=== PATIENT | male | born 1955 | race Caucasian/White ===

== ENCOUNTER 2016-11-13 08:18 | Inpatient (IN) | payer BC ==
[2016-11-13] MEDS ORDERED: NORMAL SALINE 10 ML SYRINGE FLUSH IVP PRN ×2 (08:39→11:11)
[2016-11-13] MEDS ORDERED: Sodium Chloride 0.9% 1,000 ML PRIMARY IV ONE (08:39)
[2016-11-13] MEDS ORDERED: Pantoprazole Inj 40 MG in Normal Saline Flush 10 ML IVP ONE (08:39)
[2016-11-13 08:51] LABS: BASOPHILS # (AUTO) 0.02 10*3/UL; BASOPHILS % (AUTO) 0.2 % (0-1); EOSINOPHILS # (AUTO) 0.08 10*3/UL; EOSINOPHILS % (AUTO) 0.9 % (0-8); HEMATOCRIT 42.3 % (42.0-52.0); LYMPHOCYTES # (AUTO) 0.95 10*3/uL; MEAN CORPUSCULAR HEMOGLOBIN 30.7 PG (27-31); MEAN CORPUSCULAR HGB CONC 35.5 g/dL (33-37); MEAN CORPUSCULAR VOLUME 86.5 FL (80-90); MEAN PLATELET VOLUME 10.5 FL (7.4-12.2); MONOCYTES # (AUTO) 0.75 10*3/UL (0.3-0.8); MONOCYTES % (AUTO) 8.1 % (5-15); NEUTROPHILS % (AUTO) 80.3 % (50-80); RED BLOOD COUNT 4.89 10^6/uL (4.20-6.10)
[2016-11-13 08:53] LABS: PLATELET MORPHOLOGY COMMENT NORMAL MORPHOLOGY (NORM); RBC MORPHOLOGY COMMENT NORMAL MORPHOLOGY (NORM); WBC MORPHOLOGY COMMENT NORMAL MORPHOLOGY (NORM)
--- NOTE | 2016-11-13 08:55 | PDOC ---
Abdomen/Flank HPI - General Chief Complaint: Abdomen Pain Stated Complaint: STOMACH PAIN Date Seen by Provider: 11/13/16 Time Seen by Provider: 08:35 Source: POSITIVE: Patient Exam Limitations: POSITIVE: No limitations Nurse's Notes Reviewed & Considered: Yes - History of Present Illness Initial Comments: The patient is a 61-year-old male who presents to the emergency department with right upper quadrant abdominal pain. He states that he had onset of right upper quadrant pain at approximately 10:00 yesterday morning shortly after eating a fairly large breakfast. He states that since onset of pain his pain has been constant. Occasionally he gets some pain that radiates through to his back as well. He tried eating a little bit last night and he did not notice any significant worsening in pain. He rates his pain at a greater than 5 out of 10. He denies any associated nausea or vomiting or change in bowel movements. He states he did have a small bowel movement last night with no relief in pain. He denies fevers or chills. He has not had any chest pain or shortness of breath. He has had previous appendectomy at the age of 19 and denies any other abdominal surgery. - Patient Home Medications Home Medications: Home Medications Glyburide 5 mg PO DAILY 11/13/16 Levothyroxine Sodium [Synthroid] 150 mcg PO DAILY 11/13/16 Lisinopril 40 mg PO DAILY 11/13/16 Pravastatin Sodium 40 mg PO DAILY 11/13/16 metFORMIN ER Tab [Glucophage XR Tab] 500 mg PO DAILY 11/13/16 - Patient Allergies Allergies/Adverse Reactions: Allergies Allergy/AdvReac Type Severity Reaction Status Date / Time No Known Allergies Allergy Unverified 11/13/16 08:26 Past Medical History - heen HEENT History: Denies History Cardiovascular History: Other (please comment) Additional Cardiovasular History: high calcium index test Respiratory History: Denies History Gastrointestinal History: Denies History Genitourinary History: Denies History Endocrine History: Denies History Musculoskeletal History: Denies History Prosthesis or Implant: No Neurological History: Denies History Blood Disorders: Denies History Psychiatric History: Denies History History of Sexually Transmitted Diseases: No Male Reproductive History: Denies History Female Reproductive History: Denies History Obstetrical History: Denies History Cancer History: Denies History In Past Year Been Physically Harmed or Verbally Threatened: No History of MDRO: No History of Other Communicable Diseases: No Tobacco Use: Never Smoker Alcohol Use: Occasionally Substance Use Type: None Previous Surgical History: No Past Medical History Reviewed: Reviewed - No Changes ROS - Limitations ROS Limitations: No Limitations Constitution: DENIES: Chills, Fever Cardiovascular: REPORTS: Other (Had a recent cardiac workup including cardiac catheter and was told that his coronary arteries have no blockage). DENIES: Chest Pain Respiratory: REPORTS: Denies Resp Symptoms. DENIES: Hurts To Breathe, Shortness Of Breath Gastrointestinal: REPORTS: Abdominal Pain. DENIES: Nausea, Vomitting, Diarrhea , Black Stools, Bloody Stools Musculoskeletal: REPORTS: Denies MS Symptoms Genitourinary: REPORTS: Denies Symptoms. DENIES: Flank Pain Eyes: REPORTS: Denies Symptoms ENT: REPORTS: Denies Symptoms Skin: DENIES: Rash Abdominal/Flank Pain PE - General Appearance General Appearance: POSITIVE: Alert, Cooperative, No Acute Distress - HEENT HEENT: POSITIVE: Head Inspection Nml - Neck Neck: POSITIVE: Normal Inspection - Respiratory Respiratory: POSITIVE: No Respiratory Distress, Breath Sounds Normal - Cardiovascular Cardiovascular: POSITIVE: Regular Rate and Rhythm, Heart Sounds Normal - Abdomen Abdomen: Soft: (All Quadrants), Normal Bowel Sounds: (All Quadrants), No Guarding: (All Quadrants), No Rebound: (All Quadrants), No [place] Mass: (All Quadrants), No Distention: (All Quadrants) Additional Abdominal Details: He does have tenderness in the right mid and right upper quadrant without any guarding or rebound tenderness, Lloyd's sign is mildly positive - Back Back: NEGATIVE: CVA Tenderness (R), CVA Tenderness (L) - Skin Skin: POSITIVE: Intact, No Rash - Extremities Extremity: Normal ROM: (All Extremities), Normal Inspection: (All Extremities) - Neurological Neurological: POSITIVE: Oriented X3, Motor Normal, Sensation Normal Abdomen Progress - Patient's Progress MDM / ED Course: Initial evaluation was completed in an IV was established. Blood work including CBC, CMP, amylase, lipase and CRP was ordered. In addition a CT scan with IV contrast of his abdomen and pelvis was ordered. Patient care was transferred to Dr. Giles at 0900. Patient Care Time - Estimated PCT Patient Care Time (In Minutes): 15 Vital Signs - Recent Vital Signs Vital Signs: Vital Signs (Last 8 hours) Temp Pulse Resp BP Pulse Ox 11/13/16 08:32 96.7 F 87 18 155/81 95 - VS Reviewed Vital Signs Reviewed: Yes Discharge Clinical Impression: Abdominal pain Condition: Stable
[2016-11-13 09:00] LABS: URINE SAMPLE TYPE CLEAN CATCH URINE
[2016-11-13 09:01] LABS: BILIRUBIN,URINE NEGATIVE (NEG); CLARITY,URINE CLEAR (CLEAR); COLOR,URINE YELLOW; GLUCOSE, URINE (UA) 100 mg/dL (NEG); NITRATE,URINE NEGATIVE (NEG); OCCULT BLOOD,URINE NEGATIVE (NEG); PROTEIN,URINE NEGATIVE (NEG); UROBILINOGEN,URINE 0.2 EU/dL (0.2)
[2016-11-13] MEDS ORDERED: KETOROLAC 30 MG/1 ML VIAL IVP ONE (09:09)
[2016-11-13 09:14] LABS: BLOOD UREA NITROGEN 13 mg/dL (7-22); BUN/CREATININE RATIO 18.57 (6-20); C-REACTIVE PROTEIN 4.5 mg/dL (0.0-0.9); CALCIUM 9.1 mg/dL (8.7-10.7); EST GLOMERULAR FILTRATION > 60 (>60 ml/min/1.73m(2)); LIPASE 448 IU/L (23-300); SERUM ALBUMIN 4.3 g/dL
--- NOTE | 2016-11-13 09:14 | PDOC ---
Transfer of Care - Care Accepted Time Care Transferred: 09:10 Report from Transferring Physician Received: Yes MDM / ED Course: Patient was transferred to my care while awaiting laboratory findings and CT examination of his abdomen. He has right upper quadrant pain that is constant and unremitting that he rates as a 5/10. He has a history of hypertriglyceridemia and a similar episode in the past during which she had a period of jaundice, elevated amylase, and pain that resolved. He is unsure of what the diagnosis was. Presently he denies any headache, shortness of breath, chest pain, nausea vomiting or diarrhea, no fever chills or sweats. Home Medications: Home Medications Glyburide 5 mg PO DAILY 11/13/16 Levothyroxine Sodium [Synthroid] 150 mcg PO DAILY 11/13/16 Lisinopril 40 mg PO DAILY 11/13/16 Pravastatin Sodium 40 mg PO DAILY 11/13/16 metFORMIN ER Tab [Glucophage XR Tab] 500 mg PO DAILY 11/13/16 Allergies/Adverse Reactions: Allergies No Known Allergies Allergy (Unverified 11/13/16 08:26) Vital Signs Reviewed: Yes Nurse's Notes Reviewed & Considered: Yes - Pending Patient Care Items Pending Patient Care Items: POSITIVE: Labs, Pain Control, CT / MRI Results - Expected Patient Outcome Tentative Impression of Patient: Right upper quadrant pain with differential diagnostic considerations including #1 gallbladder dysfunction, #2 hypertriglyceridemia and early pancreatitis, #3 liver dysfunction. Expected Disposition: POSITIVE: Home Expected Disposition of Patient: Patient being admitted with pancreatitis. - Re-Evaluation of Patient Re-Examine Time:: 11:07 Disposition of Patient: POSITIVE: Admitted Counseled: POSITIVE: Patient, RE: Lab Results, RE: Radiology Results, RE: DX Pending Test Results Documented: Yes Clinical Impression Documented: Yes (pancreatitis) - Results Reviewed Lab Results Reviewed by Me: Yes Lab Results: Laboratory Results 11/13/16 11/13/16 Range/Units 08:25 08:49 WBC 9.22 (4.8-10.8) 10^3/uL RBC 4.89 (4.20-6.10) 10^6/uL Hgb 15.0 (14.0-18.0) g/dL Hct 42.3 (42.0-52.0) % MCV 86.5 (80-90) FL MCH 30.7 (27-31) PG MCHC 35.5 (33-37) g/dL RDW Std Deviation 39.5 (39-50) fL RDW Coeff of Agustín 12.7 (11.5-14.5) % Plt Count 140 (140-350) 10*3/uL MPV 10.5 (7.4-12.2) FL Immature Gran % (Auto) 0.2 (0-5) % Neut % (Auto) 80.3 H (50-80) % Lymph % (Auto) 10.3 (10-50) % [place] % (Auto) 8.1 (5-15) % Eos % (Auto) 0.9 (0-8) % Baso % (Auto) 0.2 (0-1) % Immature Gran # (Auto) 0.02 10*3/UL Neut # (Auto) 7.40 10*3/UL Lymph # (Auto) 0.95 10*3/uL [place] # (Auto) 0.75 (0.3-0.8) 10*3/UL Eos # (Auto) 0.08 10*3/UL Baso # (Auto) 0.02 10*3/UL WBC Morphology Comment Normal morphology (NORM) Plt Morphology Comment Normal morphology (NORM) RBC Morph Comment Normal morphology (NORM) Sodium 136 (135-145) meq/L Potassium 4.0 (3.8-5.2) meq/L Chloride 102 (98-112) meq/L Carbon Dioxide 23 (23-33) meq/L Anion Gap 11 (5-20) BUN 13 (7-22) mg/dL Creatinine 0.7 (0.50-1.20) mg/dL Estimated GFR > 60 (>60 ml/min/1.73m(2)) BUN/Creatinine Ratio 18.57 (6-20) Glucose 223 H (78-110) mg/dL Mean Blood Glucose 173.740 mg/dL Hemoglobin A1c 7.80 H (4.2-6.0) % Calculated Osmolality 288.0 (267-292) mOsm/kg Calcium 9.1 (8.7-10.7) mg/dL Total Bilirubin 1.0 (0.3-1.2) mg/dL AST 21 (21-57) IU/L ALT 35 IU/L Alkaline Phosphatase 74 (38-126) IU/L C-Reactive Protein 4.5 H (0.0-0.9) mg/dL Total Protein 7.3 (6.1-8.0) g/dL Albumin 4.3 g/dL Globulin 3.0 (2.50-4.10) g/dL Albumin/Globulin Ratio 1.40 mg/g Amylase 81 (30-110) U/L Lipase 448 H (23-300) IU/L Ur Collection Type Clean catch urine Urine Color Yellow Urine Clarity Clear (CLEAR) Urine pH 6.0 (5.0-8.5) Ur Specific [place] 1.015 (1.005-1.030) Urine Protein Negative (NEG) mg/dl Urine Glucose (UA) 100 (NEG) mg/dL Urine Ketones Negative (NEG) Urine Occult Blood Negative (NEG) Urine Nitrate Negative (NEG) Urine Bilirubin Negative (NEG) Urine Urobilinogen 0.2 (0.2) EU/dL Ur Leukocyte Esterase Negative (NEG) Ur Culture Indicated? Culture not set - Consult Consult (If Yes, Name of Consulting MD & Time Called): Yes (Dr. Hutton) Recommendations:: Admission for pancreatitis, hydration, pain medication, nothing by mouth. Patient Care Time - Estimated PCT Patient Care Time (In Minutes): 20 Vital Signs - Recent Vital Signs Vital Signs: Vital Signs (Last 8 hours) Temp Pulse Resp BP Pulse Ox 11/13/16 08:32 96.7 F 87 18 155/81 95 - VS Reviewed Vital Signs Reviewed: Yes Discharge Clinical Impression: Abdominal pain, Pancreatitis Discharge Disposition: Admit to Inpatient Condition: Stable Patient Instructions Given at Discharge: Pancreatitis (ED) Follow Up With: DANIEL TSANG [Primary Care Provider] - Date Decision to Admit to Inpatient: 11/13/16 Time Decision to Admit to Inpatient: 11:10
--- NOTE | 2016-11-13 10:42 | DI ---
HISTORY: Right upper quadrant abdominal pain for 1day. History of appendectomy and lumbar laminecto my. COMPARISON: None available. TECHNIQUE: Multiple helically acquired CT images were obtained through the abdomen and pelvis withou t contrast. FINDINGS: Examination demonstrates some focal inflammatory fat surrounding the head of pancreas and second portion the duodenum. This appears to be more centered around the pancreatic head. The liver, gallbladder, spleen and adrenals are normal. There is a large simple cyst within the righ t kidney measuring 4.8 cm in long axis. There is a large renal parenchymal stone within the interpol ar right kidney without hydronephrosis. The ureters demonstrate normal course and caliber. The urinary bladder is unremarkable. A few colonic diverticula are noted without CT evidence of acut e diverticulitis. Post surgical changes are seen consistent with laminectomies of the lower lumbar spine. IMPRESSION: 1. Inflammatory changes surrounding the pancreatic head most consistent with pancreatitis. Correlate with labs. This could also be secondary inflammation of the pancreas due to a duodenitis.
[2016-11-13] MEDS ORDERED: LIDOCAINE W/ SODIUM BICARB 0.5 ML SYR SUBD PRN (11:11)
[2016-11-13] MEDS ORDERED: ONDANSETRON 4 MG/2 ML VIAL IVP PRN (11:11)
[2016-11-13] MEDS: HYDROmorphone 2 MG/1 ML IVP PRN ×3 (12:00→20:11)
[2016-11-13] MEDS: Sodium Chloride 0.9% 1,000 ML PRIMARY IV SCH ×2 (12:50→20:13)
--- NOTE | 2016-11-13 14:31 | PDOC ---
History and Physical - History of Present Illness Date and Time of Service: 11/13/2016, 0360 Chief Complaint: Abdominal pain History of Present Illness: This very pleasant 7-year-old male who has diabetes mellitus type II, hypothyroidism, hypercholesterolemia, and hypertension, who came down in the [place] area yesterday (actually near [facility]), and he developed abdominal pain sometime yesterday around 10:00 a.m. or so. He states that it was quite severe, centered in the middle of the abdomen and right side of the abdomen and radiated to the back bilaterally. He had a similar pain over 20 years ago or so in which he was jaundice, and he states that they thought he may have passed the stone through the common bile duct. He did not have a cholecystectomy at that time. Workup from that hospital stay is not known and that was in [place], [place]. He denies any fever with these symptoms. He states he was recently told by die welder in [place] that his cholesterol was high enough that it could put him at risk for pancreatitis and he has been on a statin since that time. He also takes coenzyme Q10. He denies drinking. No nausea or vomiting. He tried position changes and that did not help his pain get better. Dilaudid seems to help his pain get better. Past Medical History Medical History: 1. Hypertension. 2. Diabetes mellitus type II, no known complications. 3. Hypercholesterolemia with hypertriglyceridemia. 4. Hypothyroidism Surgical History: 1. Remote appendectomy Pertinent Family History: Significant for heart disease. Past Social History: Does not smoke or drink. for about 35 years, has 2 daughters described as healthy. 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 Tobacco Use: Never Smoker Substance Use Type: None Alcohol Use: None Medication / Allergies Home Medications: Home Medications Medication Instructions Recorded Confirmed Type Glyburide 5 mg PO DAILY 11/13/16 11/13/16 History Levothyroxine Sodium [Synthroid] 150 mcg PO DAILY 11/13/16 11/13/16 History Lisinopril 40 mg PO DAILY 11/13/16 11/13/16 History Pravastatin Sodium 40 mg PO DAILY 11/13/16 11/13/16 History metFORMIN ER Tab [Glucophage XR 500 mg PO DAILY 11/13/16 11/13/16 History Tab] Allergies/Adverse Reactions: Allergies Allergy/AdvReac Type Severity Reaction Status Date / Time No Known Allergies Allergy Verified 11/13/16 11:38 Review of Systems - Review of Systems All Systems: Reviewed & No Additional Complaints Except as Stated (I did a 12 point review systems and it was negative other than that discussed below or as in the history of present illness.) - Cardiovascular Cardiovascular: REPORTS: Other (Had recent workup with die welder regarding potential for coronary artery disease and his studies were reportedly negative.) - Gastrointestinal Gastrointestinal / Abdominal: REPORTS: See HPI - Musculoskeletal Musculoskeletal: REPORTS: Joint Pain - Shoulders (Bilateral shoulder pain that the patient tries position changes for at nighttime. He gets poor sleep because of the shoulder pain.) Exam - Vitals Vital Signs: Vital Signs Temperature 97.8 F Temperature Source Temporal Artery Scan Pulse Rate [Pulse Oximeter] 84 Respiratory Rate 19 Blood Pressure [Left Arm] 153/86 Pulse Ox 95 Oxygen Delivery Method Room Air Height 5 ft 9.5 in Weight 246 lb - General General Appearance: POSITIVE: No Acute Distress, Cooperative - Head Head Exam: POSITIVE: Normal Inspection, Normocephalic, Atraumatic - Eye Eye Exam: POSITIVE: No Scleral Icterus - ENT ENT Exam: POSITIVE: Mucous Membranes Moist - Neck Neck Exam: POSITIVE: Normal Inspection, No Tenderness, No Thyromegaly - Respiratory Respiratory Exam: POSITIVE: Clear to Auscultation - Bilaterally, Breathing Non Labored, Normal to Percussion and Palpation - Cardiovascular Cardiovascular Exam: POSITIVE: RRR, No Murmur, No Clicks, No Gallops, No Rubs, No JVD - GI/Abdominal GI/Abdominal Exam: POSITIVE: Normal Bowel Sounds, Non Tender, Non Distended, Soft - Rectal Rectal Exam: POSITIVE: Deferred - External Exam: POSITIVE: Deferred Exam: POSITIVE: Deferred - Extremities Extremities Exam: POSITIVE: No Clubbing Present, No Edema Present, No Cyanosis Present - Back Back Exam: POSITIVE: Normal Inspection, No CVA Tenderness - Neurological Neurological Exam: POSITIVE: Alert, Oriented x 3, No Facial Droop, Speech Intact / Clear, Moves All Extremities Equally - Psychiatric Psychiatric Exam: POSITIVE: Normal Affect, Normal Mood - Integumentary Integumentary Exam: POSITIVE: Normal Color, Warm, Dry, Intact - Central Line Examination Central Line Present on Admission: No Results - Labs CBC and BMP: 11/13/16 08:25 11/13/16 08:25 Labs - Last 24 Hours: Laboratory Results 11/13/16 11/13/16 Range/Units 08:25 08:49 WBC 9.22 (4.8-10.8) 10^3/uL RBC 4.89 (4.20-6.10) 10^6/uL Hgb 15.0 (14.0-18.0) g/dL Hct 42.3 (42.0-52.0) % MCV 86.5 (80-90) FL MCH 30.7 (27-31) PG MCHC 35.5 (33-37) g/dL RDW Std Deviation 39.5 (39-50) fL RDW Coeff of Agustín 12.7 (11.5-14.5) % Plt Count 140 (140-350) 10*3/uL MPV 10.5 (7.4-12.2) FL Immature Gran % (Auto) 0.2 (0-5) % Neut % (Auto) 80.3 H (50-80) % Lymph % (Auto) 10.3 (10-50) % [place] % (Auto) 8.1 (5-15) % Eos % (Auto) 0.9 (0-8) % Baso % (Auto) 0.2 (0-1) % Immature Gran # (Auto) 0.02 10*3/UL Neut # (Auto) 7.40 10*3/UL Lymph # (Auto) 0.95 10*3/uL [place] # (Auto) 0.75 (0.3-0.8) 10*3/UL Eos # (Auto) 0.08 10*3/UL Baso # (Auto) 0.02 10*3/UL WBC Morphology Comment Normal morphology (NORM) Plt Morphology Comment Normal morphology (NORM) RBC Morph Comment Normal morphology (NORM) Sodium 136 (135-145) meq/L Potassium 4.0 (3.8-5.2) meq/L Chloride 102 (98-112) meq/L Carbon Dioxide 23 (23-33) meq/L Anion Gap 11 (5-20) BUN 13 (7-22) mg/dL Creatinine 0.7 (0.50-1.20) mg/dL Estimated GFR > 60 (>60 ml/min/1.73m(2)) BUN/Creatinine Ratio 18.57 (6-20) Glucose 223 H (78-110) mg/dL Mean Blood Glucose 173.740 mg/dL Hemoglobin A1c 7.80 H (4.2-6.0) % Calculated Osmolality 288.0 (267-292) mOsm/kg Calcium 9.1 (8.7-10.7) mg/dL Total Bilirubin 1.0 (0.3-1.2) mg/dL AST 21 (21-57) IU/L ALT 35 IU/L Alkaline Phosphatase 74 (38-126) IU/L C-Reactive Protein 4.5 H (0.0-0.9) mg/dL Total Protein 7.3 (6.1-8.0) g/dL Albumin 4.3 g/dL Globulin 3.0 (2.50-4.10) g/dL Albumin/Globulin Ratio 1.40 mg/g Amylase 81 (30-110) U/L Lipase 448 H (23-300) IU/L Ur Collection Type Clean catch urine Urine Color Yellow Urine Clarity Clear (CLEAR) Urine pH 6.0 (5.0-8.5) Ur Specific [place] 1.015 (1.005-1.030) Urine Protein Negative (NEG) mg/dl Urine Glucose (UA) 100 (NEG) mg/dL Urine Ketones Negative (NEG) Urine Occult Blood Negative (NEG) Urine Nitrate Negative (NEG) Urine Bilirubin Negative (NEG) Urine Urobilinogen 0.2 (0.2) EU/dL Ur Leukocyte Esterase Negative (NEG) Ur Culture Indicated? Culture not set - Imaging Status: Image Reviewed by Me (The CT scan of the abdomen and pelvis shows some abnormalities in the pancreas. The radiologist felt that the head of the pancreas and possibly the duodenum were inflamed.) Assessment and Plan - Patient Problems (1) Pancreatitis Current Visit: Yes Status: Acute Qualifiers: Chronicity: acute Pancreatitis type: unspecified pancreatitis type Acute pancreatitis complication: no infection or necrosis Qualified Description: Acute pancreatitis without infection or necrosis, unspecified pancreatitis type Qualifier Code(s): (K85.90) Acute pancreatitis without necrosis or infection, unspecified (2) Diabetes mellitus type II, uncontrolled Current Visit: Yes Status: Acute Qualifiers: Diabetes mellitus complication status: without complication Diabetes mellitus intermediate frame tender insulin use: without intermediate frame tender use Qualified Description : Uncontrolled type 2 diabetes mellitus without complication, without long-term current use of insulin Qualifier Code(s): (E11.65) Type 2 diabetes mellitus with hyperglycemia (3) Hypertension Current Visit: Yes Status: Acute Qualifiers: Hypertension type: essential hypertension Qualified Description: Essential hypertension Qualifier Code(s): (I10) Essential (primary) hypertension (4) Hypercholesterolemia Current Visit: Yes Status: Acute (5) Hypothyroidism Current Visit: Yes Status: Acute Qualifiers: Hypothyroidism type: acquired Qualified Description: Acquired hypothyroidism Qualifier Code(s): (E03.9) Hypothyroidism, unspecified - Assessment / Plan Additional Assessment/Plan Details: Admit the patient. Keep nothing by mouth for now/IV fluids/check labs tomorrow. Get a cholesterol panel today as patient's not had anything to eat or drink since 6 or 7 PM yesterday. Ultrasound of the gallbladder needs to be done. Given the story before, it sounds very suspicious for choledocholithiasis with jaundice and grey-colored stools that he told me about with his last episode, and it makes me think that he probably needs a cholecystectomy at some point. Check lipase tomorrow. Pain control with Dilaudid/IV medications for now. Nausea medicines written for. Possible need for surgical consultation based on findings of the above. I discussed plan with the patient and his daughter and they agreed.
[2016-11-13] MEDS ORDERED: Glucagon Inj Vial 1 MG/ML VIAL IM PRN (14:38)
[2016-11-13] MEDS ORDERED: Insulin Sliding Scale Protocol SUBCUT PRN (14:38)
[2016-11-13] MEDS ORDERED: DEXTROSE 50%-WATER SYRINGE 50 ML SYRINGE IVP PRN (14:38)
[2016-11-13] MEDS ORDERED: DEXTROSE 31 GM GEL PO PRN (14:38)
[2016-11-13 15:22] LABS: CHOL/HDL RATIO 4.44 RATIO (0-4.0); LDL CHOLESTEROL,CALCULATED 56.8 mg/dL
[2016-11-13] MEDS: Insulin Lispro Flexpen 300 UNIT/3 ML INSULN.PEN SUBCUT SCH (16:27)
[2016-11-14] MEDS: HYDROmorphone 2 MG/1 ML IVP PRN (00:26)
[2016-11-14] MEDS: Sodium Chloride 0.9% 1,000 ML PRIMARY IV SCH ×2 (04:15→23:25)
[2016-11-14] MEDS: LEVOTHYROXINE 75 MCG TABLET PO SCH (05:53)
[2016-11-14 06:23] LABS: BASOPHILS # (AUTO) 0.01 10*3/UL; BASOPHILS % (AUTO) 0.1 % (0-1); EOSINOPHILS # (AUTO) 0.05 10*3/UL; EOSINOPHILS % (AUTO) 0.7 % (0-8); HEMATOCRIT 38.1 % (42.0-52.0); HEMOGLOBIN 12.7 g/dL (14.0-18.0); LYMPHOCYTES # (AUTO) 0.99 10*3/uL; MEAN CORPUSCULAR HEMOGLOBIN 30.1 PG (27-31); MEAN CORPUSCULAR HGB CONC 33.3 g/dL (33-37); MEAN CORPUSCULAR VOLUME 90.3 FL (80-90); MEAN PLATELET VOLUME 10.8 FL (7.4-12.2); MONOCYTES # (AUTO) 0.71 10*3/UL (0.3-0.8); MONOCYTES % (AUTO) 9.3 % (5-15); NEUTROPHILS # (AUTO) 5.83 10*3/UL; NEUTROPHILS % (AUTO) 76.8 % (50-80); RED BLOOD COUNT 4.22 10^6/uL (4.70-6.10)
[2016-11-14 06:25] LABS: PLATELET MORPHOLOGY COMMENT NORMAL MORPHOLOGY (NORM); RBC MORPHOLOGY COMMENT NORMAL MORPHOLOGY (NORM); WBC MORPHOLOGY COMMENT NORMAL MORPHOLOGY (NORM)
[2016-11-14 06:30] LABS: BLOOD UREA NITROGEN 13 mg/dL (7-22); BUN/CREATININE RATIO 16.25 (6-20); CALCIUM 8.3 mg/dL (8.7-10.7); EST GLOMERULAR FILTRATION > 60 (>60 ml/min/1.73m(2)); LIPASE 209 IU/L (23-300); SERUM ALBUMIN 3.6 g/dL (3.5-4.8)
[2016-11-14] MEDS: Insulin Lispro Flexpen 300 UNIT/3 ML INSULN.PEN SUBCUT SCH ×3 (07:39→16:20)
[2016-11-14] MEDS: ACETAMINOPHEN 325 MG TABLET PO PRN ×2 (08:49→14:29)
[2016-11-14] MEDS: LISINOPRIL 20 MG TABLET PO SCH (08:50)
[2016-11-14] MEDS ORDERED: Pravastatin Tab 40 MG TAB PO SCH ×2 (09:00→21:00)
[2016-11-14] MEDS ORDERED: LEVOTHYROXINE 75 MCG TABLET PO SCH (09:00)
--- NOTE | 2016-11-14 10:10 | DI ---
US ABDOMEN LIMITED,11/14/2016 7:00 AM: Clinical History: Pancreatitis. Question cholelithiasis. Previous Exam: CT abdomen pelvis performed November 13, 2016. Findings: Multiple grayscale and color Doppler sonographic images are obtained through the abdomen, and demonst rate some increased hepatic echogenicity consistent with fatty infiltration. There is no layering stone identified within the gallbladder. The common bile duct measures 5 mm. The pancreas is not well seen, but there is no evidence of fluid collection. The aorta is within norm al limits. There is a simple cyst noted within the right kidney. The right kidney measures 11.9 cm in length wit hout hydronephrosis nor nephrolithiasis. Impression: 1. Mild fatty infiltration of liver. 2. No evidence of cholelithiasis.
--- NOTE | 2016-11-14 11:45 | PDOC(PROG) ---
Date and Time of Service: 10/17/2016, 1145 Interval History: No chest pain and no shortness breath. No nausea or vomiting. States that pain is much better and epigastric and right upper quadrant area. Has been worried about whether or not this could be a pancreatic mass or tumor as his friend just this past year of pancreatic cancer. Objective : Data - Labs CBC and BMP: 11/14/16 06:08 11/14/16 05:00 Labs - Last 24 Hours: Laboratory Results 11/14/16 11/14/16 Range/Units 05:00 06:08 WBC 7.60 (4.8-10.8) 10^3/uL RBC 4.22 L (4.70-6.10) 10^6/uL Hgb 12.7 L (14.0-18.0) g/dL Hct 38.1 L (42.0-52.0) % MCV 90.3 H (80-90) FL MCH 30.1 (27-31) PG MCHC 33.3 (33-37) g/dL RDW Std Deviation 40.7 (39-50) fL RDW Coeff of Agustín 12.6 (11.5-14.5) % Plt Count 134 L (140-350) 10*3/uL MPV 10.8 (7.4-12.2) FL Immature Gran % (Auto) 0.1 (0-5) % Neut % (Auto) 76.8 (50-80) % Lymph % (Auto) 13.0 (10-50) % [place] % (Auto) 9.3 (5-15) % Eos % (Auto) 0.7 (0-8) % Baso % (Auto) 0.1 (0-1) % Immature Gran # (Auto) 0.01 10*3/UL Neut # (Auto) 5.83 10*3/UL Lymph # (Auto) 0.99 10*3/uL [place] # (Auto) 0.71 (0.3-0.8) 10*3/UL Eos # (Auto) 0.05 10*3/UL Baso # (Auto) 0.01 10*3/UL WBC Morphology Comment Normal morphology (NORM) Plt Morphology Comment Normal morphology (NORM) RBC Morph Comment Normal morphology (NORM) Sodium 136 (135-145) meq/L Potassium 4.2 (3.8-5.2) meq/L Chloride 106 (98-112) meq/L Carbon Dioxide 24 (23-33) meq/L Anion Gap 6 (5-20) BUN 13 (7-22) mg/dL Creatinine 0.8 (0.70-1.50) mg/dL Estimated GFR > 60 (>60 ml/min/1.73m(2)) BUN/Creatinine Ratio 16.25 (6-20) Glucose 175 H (78-110) mg/dL Calculated Osmolality 285.0 (267-292) mOsm/kg Calcium 8.3 L (8.7-10.7) mg/dL Total Bilirubin 1.2 (0.3-1.2) mg/dL AST 13 L (21-57) IU/L ALT 28 (21-72) IU/L Alkaline Phosphatase 56 (38-126) IU/L Total Protein 6.3 (6.1-8.0) g/dL Albumin 3.6 (3.5-4.8) g/dL Globulin 2.6 (2.50-4.10) g/dL Albumin/Globulin Ratio 1.30 (1.3-2.0) mg/g Lipase 209 (23-300) IU/L Objective : Exam - General General Appearance: No Acute Distress, Cooperative Additional General Exam Details: Vital Signs - Last Taken Temperature 97.6 F 11/14/16 11:14 Pulse Rate 68 11/14/16 11:14 Respiratory Rate 18 11/14/16 11:14 Blood Pressure 132/71 11/14/16 11:14 Pulse Ox 92 11/14/16 11:14 - Eye Eye Exam: No Scleral Icterus - Respiratory Respiratory Exam: Clear to Auscultation - Bilaterally, Breathing Non Labored - Cardiovascular Cardiovascular Exam: RRR, No Murmur, No Clicks, No Gallops, No Rubs, No JVD - GI/Abdominal GI/Abdominal Exam: Normal Bowel Sounds, Non Tender, Non Distended, Soft - Extremities Extremities Exam: No Clubbing Present, No Edema Present, No Cyanosis Present - Neurological Neurological Exam: Alert, Oriented x 3, No Facial Droop, Speech Intact / Clear, Moves All Extremities Equally Assessment and Plan - Patient Problems (1) Pancreatitis Current Visit: Yes Status: Acute Qualifiers: Chronicity: acute Pancreatitis type: unspecified pancreatitis type Acute pancreatitis complication: no infection or necrosis Qualified Description: Acute pancreatitis without infection or necrosis, unspecified pancreatitis type Qualifier Code(s): (K85.90) Acute pancreatitis without necrosis or infection, unspecified (2) Diabetes mellitus type II, uncontrolled Current Visit: Yes Status: Acute Qualifiers: Diabetes mellitus complication status: without complication Diabetes mellitus group home insulin use: without group home use Qualified Description : Uncontrolled type 2 diabetes mellitus without complication, without long-term current use of insulin Qualifier Code(s): (E11.65) Type 2 diabetes mellitus with hyperglycemia (3) Hypertension Current Visit: Yes Status: Acute Qualifiers: Hypertension type: essential hypertension Qualified Description: Essential hypertension Qualifier Code(s): (I10) Essential (primary) hypertension (4) Hypercholesterolemia Current Visit: Yes Status: Acute (5) Hypothyroidism Current Visit: Yes Status: Acute Qualifiers: Hypothyroidism type: acquired Qualified Description: Acquired hypothyroidism Qualifier Code(s): (E03.9) Hypothyroidism, unspecified - Assessment / Plan Additional Assessment/Plan Details: The ultrasound is negative for cholelithiasis. Given that he had this episode of pancreatitis in the past with jaundice, and a suspected passed stone, and pancreatitis now, I will at least discuss with surgery today. Get an MRI scan of the abdomen to make sure that were not missing a pancreatic mass in the head of the pancreas. Depending on the studies today, may advance diet to clear liquids and check labs again tomorrow. Continue insulin as necessary for diabetes. Hold metformin for at least another 24 hours due to contrast CT scan.
--- NOTE | 2016-11-14 15:53 | DI ---
MRI ABDOMEN W/O CN,11/14/2016 10:57 AM: Clinical History: Pancreatitis. Question mass. Previous Exam: CT abdomen pelvis performed November 13, 2016 Findings: Multiplanar MR images are obtained through the abdomen following an MRCP protocol, and demonstrate a normal-appearing common bile duct. There is no evidence of truncation or filling defect. There is a large cyst involving the anterior cortex of the right kidney. Skeletal structures are also unremarkable. Gallbladder is normal. The major vascular flow voids are unremarkable. Impression: 1. Normal MRCP.
[2016-11-15] MEDS: LEVOTHYROXINE 75 MCG TABLET PO SCH (05:42)
[2016-11-15] MEDS: Insulin Lispro Flexpen 300 UNIT/3 ML INSULN.PEN SUBCUT SCH ×2 (07:05→11:38)
[2016-11-15] MEDS: LISINOPRIL 20 MG TABLET PO SCH (09:02)
--- NOTE | 2016-11-15 12:10 | DCSUMMARY ---
Hospitalization Summary Admit Date: 11/13/16 Discharge Date: 11/15/16 Primary Diagnosis:: pancreatitis, secondary to hypertriglyceridemia Hospital Course: This very pleasant 7-year-old male with diabetes mellitus type II, hypercholesterolemia with hypertriglyceridemia, who presented with abdominal pain and was found to have pancreatitis. He was admitted for further evaluation and management. Patient was kept nothing by mouth and on pain medications and IV fluids. His pain got better very quickly, and we were able to advance patient's diet to clear liquids on day 2 and then to a full diet by the evening. His lipase did not go up with dietary advances in his pain had stayed resolved. He had had a prior history of gallbladder-induced pancreatitis with jaundice in the past, but on our ultrasound here there was no evidence of cholelithiasis. I did an MRCP as patient was worried about potential pancreas mass with a friend recently dying of pancreatic cancer. The MRCP was negative. The CT scan did also show that the head of the pancreas could've been swollen secondary to duodenitis. Given that, we spoke with the patient about options. I think overall, he may do well to empirically take a proton pump inhibitor for the next 8 weeks and then consider discontinuing it at that time. If symptoms return, an EGD might be helpful. The patient's cholesterol appeared to be the cause of the pancreatitis. The hypercholesterolemia showed values of just over 300. The patient actually states that the lower, but he is working on that with diet and has been on pravastatin for upper to the decade. We talked about dual therapy, but ultimately decided that may be the best thing to do would be to stop the pravastatin and continue with Lopid to try and target the triglycerides as the LDLs were at goal at 58. Total cholesterol was normal. Diabetes was managed with insulin in the hospital due to CT contrast studies on admission. Today, no completes of chest pain or shortness breath. No nausea or vomiting and no abdominal pain. Assessment and Plan: 1. As per discharge assessments noted 2. Disposition: Patient is discharged home. 3. Condition on discharge, stable and improved. 4. Diet: regular diet 5. Activities: resume normal activities 6. Follow-Up: 1. See Dr. Hagen in about a week or so to review new medications and pain from pancreatitis 2. 6 weeks for recheck on cholesterol. 7. Medications at the Time of Discharge: Home Medications Medication Instructions Recorded Confirmed Type Glyburide 5 mg PO DAILY 11/13/16 11/13/16 History Levothyroxine Sodium [Synthroid] 150 mcg PO DAILY 11/13/16 11/13/16 History Lisinopril 40 mg PO DAILY 11/13/16 11/13/16 History metFORMIN ER Tab [Glucophage XR 500 mg PO DAILY 11/13/16 11/13/16 History Tab] Gemfibrozil [Lopid] 600 mg PO BID #60 tab 11/15/16 Rx Pantoprazole Sodium [Protonix] 40 mg PO DAILY #30 tablet 11/15/16 Rx 8. Time, care, counseling and coordination of care for this discharge is less than 30 minutes. Exam - Vitals Vital Signs: Vital Signs Temperature 97.6 F Temperature Source Temporal Artery Scan Pulse Rate [Apical] 71 Pulse Rate [Pulse Oximeter] 61 Respiratory Rate 16 Blood Pressure [Right Arm] 143/74 Blood Pressure [Left Arm] 110/57 Pulse Ox 94 Oxygen Flow Rate 2 Oxygen Delivery Method Room Air Height 5 ft 9.5 in Weight 246 lb - General General Appearance: POSITIVE: No Acute Distress, Cooperative - Eye Eye Exam: POSITIVE: No Scleral Icterus - Respiratory Respiratory Exam: POSITIVE: Clear to Auscultation - Bilaterally, Breathing Non Labored - Cardiovascular Cardiovascular Exam: POSITIVE: RRR, No Murmur, No Clicks, No Gallops, No Rubs, PMI Non-Displaced, No JVD - GI/Abdominal GI/Abdominal Exam: POSITIVE: Normal Bowel Sounds, Non Tender, Non Distended, Soft - Extremities Extremities Exam: POSITIVE: No Clubbing Present, No Edema Present, No Cyanosis Present - Neurological Neurological Exam: POSITIVE: Alert, Oriented x 3, Normal Gait, No Facial Droop, Speech Intact / Clear, Moves All Extremities Equally - Psychiatric Psychiatric Exam: POSITIVE: Normal Affect, Normal Mood Data Perinent Studies: Laboratory Results 11/13/16 11/13/16 11/14/16 Range/Units 08:25 08:49 05:00 WBC 9.22 (4.8-10.8) 10^3/uL RBC 4.89 (4.20-6.10) 10^6/uL Hgb 15.0 (14.0-18.0) g/dL Hct 42.3 (42.0-52.0) % MCV 86.5 (80-90) FL MCH 30.7 (27-31) PG MCHC 35.5 (33-37) g/dL RDW Std Deviation 39.5 (39-50) fL RDW Coeff of Agustín 12.7 (11.5-14.5) % Plt Count 140 (140-350) 10*3/uL MPV 10.5 (7.4-12.2) FL Immature Gran % (Auto) 0.2 (0-5) % Neut % (Auto) 80.3 H (50-80) % Lymph % (Auto) 10.3 (10-50) % [place] % (Auto) 8.1 (5-15) % Eos % (Auto) 0.9 (0-8) % Baso % (Auto) 0.2 (0-1) % Immature Gran # (Auto) 0.02 10*3/UL Neut # (Auto) 7.40 10*3/UL Lymph # (Auto) 0.95 10*3/uL [place] # (Auto) 0.75 (0.3-0.8) 10*3/UL Eos # (Auto) 0.08 10*3/UL Baso # (Auto) 0.02 10*3/UL WBC Morphology Comment Normal morphology (NORM) Plt Morphology Comment Normal morphology (NORM) RBC Morph Comment Normal morphology (NORM) Sodium 136 136 (135-145) meq/L Potassium 4.0 4.2 (3.8-5.2) meq/L Chloride 102 106 (98-112) meq/L Carbon Dioxide 23 24 (23-33) meq/L Anion Gap 11 6 (5-20) BUN 13 13 (7-22) mg/dL Creatinine 0.7 0.8 (0.50-1.20) mg/dL Estimated GFR > 60 > 60 (>60 ml/min/1.73m(2)) BUN/Creatinine Ratio 18.57 16.25 (6-20) Glucose 223 H 175 H (78-110) mg/dL Mean Blood Glucose 173.740 mg/dL Hemoglobin A1c 7.80 H (4.2-6.0) % Calculated Osmolality 288.0 285.0 (267-292) mOsm/kg Calcium 9.1 8.3 L (8.7-10.7) mg/dL Total Bilirubin 1.0 1.2 (0.3-1.2) mg/dL AST 21 13 L (21-57) IU/L ALT 35 28 IU/L Alkaline Phosphatase 74 56 (38-126) IU/L C-Reactive Protein 4.5 H (0.0-0.9) mg/dL Total Protein 7.3 6.3 (6.1-8.0) g/dL Albumin 4.3 3.6 g/dL Globulin 3.0 2.6 (2.50-4.10) g/dL Albumin/Globulin Ratio 1.40 1.30 mg/g Triglycerides 301 H (44-200) mg/dL Cholesterol 151 (120-200) mg/dL LDL Cholesterol, Calc 56.800 mg/dL VLDL Cholesterol 60 H (0-40) mg/dL HDL Cholesterol 34 L (40-150) mg/dL Cholesterol/HDL Ratio 4.44 H (0-4.0) RATIO Amylase 81 (30-110) U/L Lipase 448 H 209 (23-300) IU/L Ur Collection Type Clean catch urine Urine Color Yellow Urine Clarity Clear (CLEAR) Urine pH 6.0 (5.0-8.5) Ur Specific [place] 1.015 (1.005-1.030) Urine Protein Negative (NEG) mg/dl Urine Glucose (UA) 100 (NEG) mg/dL Urine Ketones Negative (NEG) Urine Occult Blood Negative (NEG) Urine Nitrate Negative (NEG) Urine Bilirubin Negative (NEG) Urine Urobilinogen 0.2 (0.2) EU/dL Ur Leukocyte Esterase Negative (NEG) Ur Culture Indicated? Culture not set 11/14/16 11/15/16 Range/Units 06:08 10:07 WBC 7.60 (4.8-10.8) 10^3/uL RBC 4.22 L (4.20-6.10) 10^6/uL Hgb 12.7 L (14.0-18.0) g/dL Hct 38.1 L (42.0-52.0) % MCV 90.3 H (80-90) FL MCH 30.1 (27-31) PG MCHC 33.3 (33-37) g/dL RDW Std Deviation 40.7 (39-50) fL RDW Coeff of Agustín 12.6 (11.5-14.5) % Plt Count 134 L (140-350) 10*3/uL MPV 10.8 (7.4-12.2) FL Immature Gran % (Auto) 0.1 (0-5) % Neut % (Auto) 76.8 (50-80) % Lymph % (Auto) 13.0 (10-50) % [place] % (Auto) 9.3 (5-15) % Eos % (Auto) 0.7 (0-8) % Baso % (Auto) 0.1 (0-1) % Immature Gran # (Auto) 0.01 10*3/UL Neut # (Auto) 5.83 10*3/UL Lymph # (Auto) 0.99 10*3/uL [place] # (Auto) 0.71 (0.3-0.8) 10*3/UL Eos # (Auto) 0.05 10*3/UL Baso # (Auto) 0.01 10*3/UL WBC Morphology Comment Normal morphology (NORM) Plt Morphology Comment Normal morphology (NORM) RBC Morph Comment Normal morphology (NORM) Sodium (135-145) meq/L Potassium (3.8-5.2) meq/L Chloride (98-112) meq/L Carbon Dioxide (23-33) meq/L Anion Gap (5-20) BUN (7-22) mg/dL Creatinine (0.50-1.20) mg/dL Estimated GFR (>60 ml/min/1.73m(2)) BUN/Creatinine Ratio (6-20) Glucose (78-110) mg/dL Mean Blood Glucose mg/dL Hemoglobin A1c (4.2-6.0) % Calculated Osmolality (267-292) mOsm/kg Calcium (8.7-10.7) mg/dL Total Bilirubin (0.3-1.2) mg/dL AST (21-57) IU/L ALT IU/L Alkaline Phosphatase (38-126) IU/L C-Reactive Protein (0.0-0.9) mg/dL Total Protein (6.1-8.0) g/dL Albumin g/dL Globulin (2.50-4.10) g/dL Albumin/Globulin Ratio mg/g Triglycerides (44-200) mg/dL Cholesterol (120-200) mg/dL LDL Cholesterol, Calc mg/dL VLDL Cholesterol (0-40) mg/dL HDL Cholesterol (40-150) mg/dL Cholesterol/HDL Ratio (0-4.0) RATIO Amylase (30-110) U/L Lipase 144 (23-300) IU/L Ur Collection Type Urine Color Urine Clarity (CLEAR) Urine pH (5.0-8.5) Ur Specific [place] (1.005-1.030) Urine Protein (NEG) mg/dl Urine Glucose (UA) (NEG) mg/dL Urine Ketones (NEG) Urine Occult Blood (NEG) Urine Nitrate (NEG) Urine Bilirubin (NEG) Urine Urobilinogen (0.2) EU/dL Ur Leukocyte Esterase (NEG) Ur Culture Indicated? 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: without [facility] use Qualified Description : Uncontrolled type 2 diabetes mellitus without complication, without long-term current use of insulin Qualifier Code(s): (E11.65) Type 2 diabetes mellitus with hyperglycemia (3) Hypertension Current Visit: Yes Status: Acute Qualifiers: Hypertension type: essential hypertension Qualified Description: Essential hypertension Qualifier Code(s): (I10) Essential (primary) hypertension (4) Hypercholesterolemia Current Visit: Yes Status: Acute (5) Hypothyroidism Current Visit: Yes Status: Acute Qualifiers: Hypothyroidism type: acquired Qualified Description: Acquired hypothyroidism Qualifier Code(s): (E03.9) Hypothyroidism, unspecified
[2016-11-15 12:27] VITALS: RESP 17; TEMP 97.1
== END 2016-11-15 12:59 | disposition home or self-care (01) | DRG 440 ==
LOC: ER 08:18 → MED/SURG 11:07
PROVIDERS: ADMIT Family Medicine; ATTEND Family Medicine
DX: K85.90 Acute pancreatitis without necrosis or infection, unspecified (principal); E11.65 Type 2 diabetes mellitus with hyperglycemia; I10 Essential (primary) hypertension; E78.00 Pure hypercholesterolemia, unspecified; E03.9 Hypothyroidism, unspecified
CPT/HCPCS: 36415; 74177; 74181; 76705; 80053; 80061; 81003; 82150; 82948; 83036; 83690; 85025; 86140; 94761; 96374; 96375; 99284; J1170; J1885; J2405; J3490; J7030

== ENCOUNTER 2018-09-25 08:25 | Observation (INO) ==
[~2018-09-25 08:25] MED LIST: LIDOCAINE W/ SODIUM BICARB 0.5 ML SYR ONE; LIDOCAINE W/ SODIUM BICARB 0.5 ML SYR SUBD ONE; Lactated Ringers 1,000 ML PRIMARY IV ONE; Nasal Sanitizer POPSWAB ampule 3 AMP (Nozin) PREOP DOSE ENOS SCH; ceFAZolin Inj 2gm (Premix) 2 GM/50 ML BAG IV ONE
[2018-09-25] MEDS: Lactated Ringers 1,000 ML PRIMARY IV SCH ×4 (08:40→21:02)
[2018-09-25 08:45] LABS: BILIRUBIN,URINE NEGATIVE (NEG); CLARITY,URINE CLEAR (CLEAR); COLOR,URINE YELLOW (Y); GLUCOSE, URINE (UA) NEGATIVE (NEG); OCCULT BLOOD,URINE NEGATIVE (NEG); PROTEIN,URINE NEGATIVE (NEG); UROBILINOGEN,URINE 0.2 EU/dL (0.2)
[2018-09-25 08:46] LABS: URINE SAMPLE TYPE CLEAN CATCH URINE
[2018-09-25] MEDS ORDERED: Sodium Chloride 0.9% vial 40 ML ONE (10:35)
[2018-09-25] MEDS ORDERED: BUPivacaine Liposome/PF (Exparel) Inj 20ml vial INFIL ONE (10:35)
[2018-09-25] MEDS ORDERED: BACITRACIN 50,000 UNIT VIAL IRRIG ONE (10:36)
[2018-09-25] MEDS ORDERED: LIDOCAINE 2%/ EPI 1:200,000 - 20 ML VIAL ONE (10:37)
[2018-09-25] MEDS ORDERED: MIDAZOLAM 5 MG/1 ML ONE (10:38)
[2018-09-25] MEDS ORDERED: fentaNYL Inj 250 MCG/5 ML VIAL ONE ×2 (10:38→13:32)
[2018-09-25] MEDS ORDERED: BUPivacaine Inj 0.5% PF (5mg/ml) 30ml vial ONE (10:38)
[2018-09-25] MEDS ORDERED: LIDOCAINE MPF 2% - 5 ML (20 MG/1 ML) ONE (10:51)
[2018-09-25] MEDS ORDERED: PROPOFOL 10 MG/1 ML (200 MG/20 ML) VIAL IV ONE (10:51)
[2018-09-25] MEDS ORDERED: TRANEXAMIC ACID 1,000 MG / 10 ML VIAL ONE (11:44)
[2018-09-25] MEDS ORDERED: Ketorolac Inj 30 MG, Morphine Inj (Ortho Cocktail) 5 MG, BUPivacaine Inj 0.25% PF 150 MG SPLASH ONE ×3 (11:45)
[2018-09-25] MEDS ORDERED: BUPivacaine Inj 0.25% PF - 10ml vial ONE (11:49)
[2018-09-25] MEDS ORDERED: EPINEPHrine Inj (1:1,000) 30mg/30ml vial ONE (13:02)
[2018-09-25] MEDS ORDERED: KETOROLAC 30 MG/1 ML VIAL ONE (13:55)
--- NOTE | 2018-09-25 14:48 | ORTHO.OP ---
- - -: See Dictated Operative Report Surgeon: Roberto Lloyd MD Staff Scientist: Ashly Reyes PA-C Findings: See Operative Note Indications: See Operative Note
[2018-09-25] MEDS ORDERED: Lactated Ringers 1,000 ML PRIMARY IV ONE (14:49)
[2018-09-25] MEDS ORDERED: HYDROmorphone 2 MG/1 ML IVP PRN (14:59)
[2018-09-25] MEDS ORDERED: LIDOCAINE W/ SODIUM BICARB 0.5 ML SYR SUBD PRN (14:59)
--- NOTE | 2018-09-25 14:59 | CRNA.PROGR ---
Anesthesia Time - Procedure/Recovery Time Start Date: 09/25/18 End Date: 09/25/18 Anesthesia : Time In: 10:55 Anesthesia : Time Out: 14:51 Anesthesia : Total Time: 236 - Block Time Start Date: 09/25/18 End Date: 09/25/18 PreOp Block : Time In: 10:20 PreOp Block : Time Out: 10:40 PreOp Block : Total Time: 20 - Total Anesthesia Time Total Anesthesia Time (minutes): 256 - Other Weight: 105.687 kg Height: 5 ft 9 in Body Mass Index (BMI): 34.4 Physical Status: P3 Anesthesia Type: General Anesthesia : LMA (with ISB)
--- NOTE | 2018-09-25 14:59 | CRNA.PROGR ---
Anesthesia Recovery Phase I - Post Anesthesia Evaluation Patient's Condition on Arrival in Phase I: Stable Pain Level: 1
--- NOTE | 2018-09-25 15:03 | CRNA.PROCE ---
Nerve Block Documentation - - Safety Measures: Time Out Taken - - Type of Nerve Block Used: Left Interscalene Block Position for Nerve Block: Supine Moniters Used During Block: EKG, SPO2, NIBP Oxygen Supplemented: Yes Sedation Used - Enter Amount in Comment Field [ANES.SEDAT]: Midazolam (mg): Yes (2mg), Fentanyl (mcg): Yes (50mcg) Skin Prep Used: ChloroPrep Technique: Nerve Stimulator Nerve Block Needle Used: [employer] 50 mm Stimulation Hz: 2 Stimulation Staring mA: 1.40 Stimulation Ending mA: 0.48 Local Anesthetic - Enter Amt in Comment Field [ANES.LOCNB]: 0.5 % Bupivicaine with Epinephrine 1:200,000 (mL): Yes (20ml), 2 % Xylocaine with Epinephrine 1:200,000 (mL): Yes (20ml) Additives to Nerve Blocks: Dexamethasone (mg): Yes (8mg(2ml)) Anesthesia Time - Block Time PreOp Block : Time In: 10:20 PreOp Block : Time Out: 10:40 - Other Weight: 105.687 kg Height: 5 ft 9 in Body Mass Index (BMI): 34.4
--- NOTE | 2018-09-25 15:13 | DI ---
XR SHOULDER MIN 2VW,09/25/2018 2:42 PM: Clinical History: Left shoulder osteoarthritis Previous Exam: August 29, 2018 Findings: 2 views of the left shoulder are obtained, and demonstrate postsurgical changes consistent with a lef t proximal humeral resurfacing procedure. Mild degenerative changes of the acromioclavicular joint are noted. Impression: Status post left shoulder hemiarthroplasty
[2018-09-25 15:16] LABS: Hematocrit [HCT] 41.4 % (42.0-52.0); Hemoglobin [HGB] 13.9 g/dL (14.0-18.0)
[2018-09-25] MEDS ORDERED: MAGNESIUM 400 MG/5 ML - 30 ML (MILK OF MAGNESIA) PO PRN (15:38)
[2018-09-25] MEDS ORDERED: BISACODYL 5 MG TABLET PO PRN (15:38)
[2018-09-25] MEDS ORDERED: Fleet Enema 133ml RECTAL PRN (15:38)
[2018-09-25] MEDS ORDERED: MAGNESIUM CITRATE 296 ML SOLUTION PO PRN (15:38)
[2018-09-25] MEDS ORDERED: ONDANSETRON 4 MG/2 ML VIAL IVP PRN (15:38)
[2018-09-25] MEDS ORDERED: DOCUSATE 100 MG CAPSULE PO PRN (15:38)
[2018-09-25] MEDS ORDERED: LIDOCAINE HCL 2 % 10 ML JELLY URO-JECT TOPICAL PRN (15:38)
[2018-09-25] MEDS: ceFAZolin Inj 2gm (Premix) 2 GM/50 ML BAG IV SCH (18:40)
[2018-09-25] MEDS: Insulin Lispro Flexpen 300 UNIT/3 ML INSULN.PEN SUBCUT SCH (21:04)
[2018-09-26] MEDS: HYDROcodone-APAP 7.5 MG-325 MG TABLET PO PRN ×2 (01:24→06:56)
[2018-09-26] MEDS: Lactated Ringers 1,000 ML PRIMARY IV SCH (02:17)
[2018-09-26] MEDS: ceFAZolin Inj 2gm (Premix) 2 GM/50 ML BAG IV SCH (02:25)
[2018-09-26] MEDS: KETOROLAC 15 MG/1 ML VIAL IVP PRN ×2 (02:43→10:22)
[2018-09-26 05:18] LABS: Hematocrit [HCT] 37.7 % (42.0-52.0); Hemoglobin [HGB] 12.6 g/dL (14.0-18.0); MEAN CORPUSCULAR HEMOGLOBIN 29.9 PG (27-31); MEAN CORPUSCULAR HGB CONC 33.4 g/dL (33-37); MEAN CORPUSCULAR VOLUME 89.3 FL (80-90); MEAN PLATELET VOLUME 10.4 FL (7.4-12.2); RED BLOOD COUNT 4.22 10^6/uL (4.70-6.10)
[2018-09-26 05:29] LABS: BLOOD UREA NITROGEN 15 mg/dL (7-22); BUN/CREATININE RATIO 21.42 (6-20)
[2018-09-26] MEDS ORDERED: LEVOTHYROXINE 75 MCG TABLET PO SCH (05:30)
[2018-09-26 06:47] VITALS: BP 141/84; RESP 20; TEMP 96.9; O2SAT 94
[2018-09-26] MEDS: Insulin Lispro Flexpen 300 UNIT/3 ML INSULN.PEN SUBCUT SCH ×2 (06:52→12:02)
[2018-09-26] MEDS ORDERED: metFORMIN ER 500 MG TABLET PO SCH (09:00)
[2018-09-26] MEDS ORDERED: Pravastatin Tab 20 MG TAB PO SCH (09:00)
[2018-09-26] MEDS ORDERED: LISINOPRIL 20 MG TABLET PO SCH (09:00)
--- NOTE | 2018-09-26 09:30 | ORTHO.PROG ---
Last Taken Vital Signs: Vital Signs - Last Taken Temperature 96.9 F 09/26/18 06:43 Pulse Rate 70 09/26/18 07:00 Respiratory Rate 20 09/26/18 07:00 Blood Pressure 141/84 09/26/18 06:43 Pulse Ox 94 09/26/18 06:43 Subjective: Patient reports his pain is not well controlled taking [place] 7.5/325mg. He is having pain in the posterior and lateral shoulder. Denies any CP, COB, F/C, or calf pain. He did not sleep well last night. Objective: Laboratory Results 09/25/18 09/25/18 09/26/18 09:19 15:18 04:20 WBC RBC Hgb 13.9 L Hct 41.4 L MCV MCH MCHC RDW Std Deviation RDW Coeff of Agustín Plt Count MPV Sodium 135 Potassium 4.3 Chloride 105 Carbon Dioxide 23 Anion Gap 7 BUN 15 Creatinine 0.7 Estimated GFR > 60 BUN/Creatinine Ratio 21.42 H Glucose 118 H Calculated Osmolality 281.0 Calcium 9.3 Blood Type A POSITIVE Antibody Screen Negative 09/26/18 04:20 WBC 11.36 H RBC 4.22 L Hgb 12.6 L Hct 37.7 L MCV 89.3 MCH 29.9 MCHC 33.4 RDW Std Deviation 41.1 RDW Coeff of Agustín 12.9 Plt Count 150 MPV 10.4 Sodium Potassium Chloride Carbon Dioxide Anion Gap BUN Creatinine Estimated GFR BUN/Creatinine Ratio Glucose Calculated Osmolality Calcium Blood Type Antibody Screen On exam, he is breathing non-labored on 2L of nasal canula. Dressing is cesar n/dry/intact. Negative calf tenderness. NV intact. Assessment: POD 1 s/p Left TSA OVO arthrosurface. Patient is having troubles getting his pain under control and it is likely from a strain of the brachial plexus. Otherwise doing well and ready to be discharged home today. Plan: * DVT ppx: ASA 81mg 1 tablet daily x 6 weeks and portable SCDs x 4 weeks (instruct on use) * Pain meds: discharge home on [place] 10/325mg 1-2 tabs every 4-6 hrs prn pain and Toradol 10mg 1 tab every 8 hours x 5 days * wound care: may remove dressing on POD 3 and shower as normal; no soaking of the incision * Ultrasling brace wear at all times except when dressing and bathing * immobilize left shoulder, may perform gentle ROM of elbow, wrist, and hand * discharge home * follow-up with orthopedics in 2 weeks as scheduled
[2018-09-26] MEDS ORDERED: HYDROcodone-APAP 10 MG-325 MG TABLET PO ONE ×2 (10:00→10:45)
--- NOTE | 2018-09-27 12:04 | OTI REPORT ---
Thank you for the referral of aLmberto Merrill. He was seen on 09/26/18 for an occupational therapy inpatient evaluation status post left total shoulder arthroplasty. SUBJECTIVE: The patient is a 63-year-old male who underwent a left total shoulder arthroplasty. 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 PAST MEDICAL HISTORY: Past medical history can be found in the patient's medical record. OBJECTIVE FINDINGS: General observations: The patient was educated in his shoulder precautions. Activities of daily living: The patient was able to dress self with zip up shirt with min assist. Pain: The patient rates his pain at a 7 to 8/10 on the verbal analog scale (0=no pain, 10=worst pain). ASSESSMENT: The patient did well with today's session. His pain levels are high. This was verbalized to his nurse and Dr. Segura and they were going to look for pain control. Occupational Therapy Goals: To be met following discharge from inpatient: Patient is not to do outpatient therapy until after his first post-op visit with Dr. Lloyd TREATMENT PLAN: Patient will be discharged at this time. INITIAL TREATMENT: Treatment today consisted of the initial evaluation. The patient's brace was adjusted to fit him appropriately. The patient was issued a cryo cuff and instructed in its propre use and care. The patient's came in after part of the session and review of all of these things were given to her as well. JACKIE
== END 2018-09-26 12:59 | disposition home or self-care (01) ==
LOC: MED/SURG 08:25 → OR 08:25
PROVIDERS: ADMIT Orthopaedic Surgery; ATTEND Orthopaedic Surgery